=== PATIENT | female | born 1960 | race Caucasian/White ===

== ENCOUNTER 2017-01-22 14:55 | Observation (INO) | payer OTHER ==
[2017-01-22] MEDS ORDERED: ASPIRIN 81 MG CHEWABLE TAB PO ONE ×2 (15:09)
[2017-01-22] MEDS ORDERED: NS 500 ML IV ONE ×2 (15:09)
--- NOTE | 2017-01-22 15:15 | CPEKG ---
Heart Rate: 63 RR Interval: 952 P-R Interval: 160 QRSD Interval: 90 QT Interval: 412 QTC Interval: 422 P [place]: 34 QRS [place]: 70 T Wave [place]: 46 EKG Severity - OTHERWISE NORMAL ECG - EKG Impression: SINUS RHYTHM EKG Impression: S1,S2,S3 PATTERN Electronically Signed By: Radha Johnson 23-Jan-2017 00:06:33
--- NOTE | 2017-01-22 15:15 | CPEKG ---
Heart Rate: 63 RR Interval: 952 P-R Interval: 160 QRSD Interval: 90 QT Interval: 412 QTC Interval: 422 P [place]: 34 QRS [place]: 70 T Wave [place]: 46 EKG Severity - OTHERWISE NORMAL ECG - EKG Impression: SINUS RHYTHM EKG Impression: S1,S2,S3 PATTERN Electronically Signed By: Radha Johnson 23-Jan-2017 00:06:33
[2017-01-22 15:29] LABS: PLATELET COUNT 203 10^3/uL (150-400)
--- NOTE | 2017-01-22 15:33 | EDPHY ---
H & P Time Seen by Provider: 01/22/17 15:09 HPI/ROS: HPI Chest discomfort, shortness of breath. 56-year-old female by private vehicle. This patient complains of on and off chest discomfort described as an aching in the middle of her chest with associated shortness of breath that is worse with taking a deep breath and worse with exertion for the last month but more persistent and worse over the last week. She saw her primary care physician who diagnosed her with pleurisy and place her on NSAIDs. This is Dr. Villela. Her symptoms in persisted and she was seen in urgent care prior to coming to the emergency department. She requested antibiotics thinking that she had a pneumonia but her chest x-ray ordered by her primary care physician was normal. After quick evaluation at the urgent care she was sent directly to the emergency department for evaluation. ROS: Constitutional: No fever, no chills. No weakness. Eyes: No discharge. No changes in vision. ENT: No sore throat. No nasal congestion or rhinorrhea. Respiratory: No cough. As above. Cardiac: As above, no palpitations. Gastrointestinal: No abdominal pain, no vomiting, no diarrhea. Genitourinary: No hematuria. No dysuria or increased frequency with urination. Musculoskeletal: No back pain. No neck pain. No myalgias or arthralgias. Skin: No rashes. Neurological: No headache. No focal weakness or altered sensation. Past medical history: Knee surgery. Breast cancer. Social history: Nonsmoker. No alcohol. Here by herself. Describes herself as very athletic and physically active. Physical Exam: General Appearance: Alert, no distress. This patient is responding to questions appropriately and in full sentences. This patient appears well- hydrated and well-nourished. Eyes: Pupils equal and round no pallor or injection. No lid edema, erythema or injection. Respiratory: There are no retractions, lungs are clear to auscultation with good air movement bilaterally. No tachypnea. No reproducible pain on palpation of the chest wall. Cardiovascular: Regular rate and rhythm. No murmur. Gastrointestinal: Abdomen is soft and nontender, no masses, bowel sounds normal. No focal tenderness at McBurney's point. No Rojo sign. Neurological: Motor sensory function is grossly intact. Cranial nerves are normal. Gait is normal. Skin: Warm and dry, no rashes. Musculoskeletal: Neck is supple and nontender. Extremities are symmetrical. All joints range without pain or impingement. Psychiatric: No agitation. No depression. Database: EKG: EKG time is 3:12 p.m.; EKG shows a narrow complex normal sinus rhythm with a ventricular rate of 63. The DE, QRS, QT intervals are within normal limits. There are no ST-T wave changes indicative of ischemic or injury pattern. No evidence of right heart strain. Interpreted by me. Imaging: Chest x-ray AP portable; the cardiac mediastinal silhouette is unremarkable. No evidence of infiltrate or pneumothorax. No acute cardiopulmonary disease process noted. Interpreted by me. Procedures: Emergency department course: IV placed. She was placed on a hospital monitor. Vital signs reviewed. EKG obtained and reviewed by myself. She was given 324 mg of chewed aspirin. She reports that at rest at this time she is not experiencing any significant short of breath and denies any significant chest discomfort. 4:30 p.m., patient re-evaluated. Resting comfortably at this time. Results of her diagnostic testing in the emergency department discussed with her. Plan for admission and further evaluation discussed. All of her questions were answered. Hospitalist paged. 4:40 p.m., spoke with hospitalist. Patient accepted for admission to observation telemetry. Patient's remaining emergency department course under my care has been uneventful. Patient was admitted in stable and improved condition. Differential Diagnosis: The differential diagnosis on this patient includes but is not limited to pulmonary embolism, acute coronary syndrome, pleurisy, esophageal spasm, pneumonia. This represents a partial list of diagnoses considered. These considerations are based on history, physical exam, past history, reassessment and diagnostic testing. Smoking Status: Never smoked Constitutional: Initial Vital Signs Temperature (C) 37.1 C 01/22/17 14:58 Heart Rate 72 01/22/17 14:58 Respiratory Rate 16 01/22/17 14:58 Blood Pressure 107/70 01/22/17 14:58 O2 Sat (%) 96 01/22/17 14:58 O2 Delivery Mode Room Air Allergies/Adverse Reactions: gluten Allergy (Verified 01/22/17 14:58) Home Medications: Medication Instructions Recorded NK [No Known Home Meds] 01/22/17 Medical Decision Making - Diagnostics Imaging Results: Imaging Impressions Chest X-Ray 01/22/17 15:10 Impression: Negative portable chest. - Data Points Laboratory Results: Laboratory Results 01/22/17 15:20 01/22/17 15:20 01/22/17 01/22/17 01/22/17 15:20 15:20 15:20 WBC 3.72 10^3/uL L 10^3/uL (3.80-9.50) RBC 4.45 10^6/uL 10^6/uL (4.18-5.33) Hgb 13.8 g/dL g/dL (12.6-16.3) Hct 40.7 % % (38.0-47.0) MCV 91.5 fL fL (81.5-99.8) MCH 31.0 pg pg (27.9-34.1) MCHC 33.9 g/dL g/dL (32.4-36.7) RDW 12.8 % % (11.5-15.2) Plt Count 203 10^3/uL 10^3/uL (150-400) MPV 8.7 fL fL (8.7-11.7) Neut % (Auto) 53.8 % % (39.3-74.2) Lymph % (Auto) 34.9 % % (15.0-45.0) [place] % (Auto) 7.3 % % (4.5-13.0) Eos % (Auto) 2.4 % % (0.6-7.6) Baso % (Auto) 1.3 % % (0.3-1.7) Nucleat RBC Rel Count 0.0 % % (0.0-0.2) Absolute Neuts (auto) 2.00 10^3/uL 10^3/uL (1.70-6.50) Absolute Lymphs (auto) 1.30 10^3/uL 10^3/uL (1.00-3.00) Absolute Monos (auto) 0.27 10^3/uL L 10^3/uL (0.30-0.80) Absolute Eos (auto) 0.09 10^3/uL 10^3/uL (0.03-0.40) Absolute Basos (auto) 0.05 10^3/uL 10^3/uL (0.02-0.10) Absolute Nucleated RBC 0.00 10^3/uL 10^3/uL (0-0.01) Immature Gran % 0.3 % % (0.0-1.1) Immature Gran # 0.01 10^3/uL 10^3/uL (0.00-0.10) PT 12.8 SEC SEC (12.0-15.0) INR 0.97 (0.83-1.16) APTT 22.8 SEC L SEC (23.0-38.0) D-Dimer < 0.27 ug/mLFEU ug/mLFEU (0.00-0.50) Sodium 138 mEq/L mEq/L (134-144) Potassium 4.1 mEq/L mEq/L (3.5-5.2) Chloride 103 mEq/L mEq/L (97-110) Carbon Dioxide 25 mEq/l mEq/l (22-31) Anion Gap 10 mEq/L mEq/L (8-16) BUN 16 mg/dL mg/dL (7-23) Creatinine 0.7 mg/dL mg/dL (0.6-1.0) Estimated GFR > 60 Glucose 87 mg/dL mg/dL (70-100) Calcium 9.4 mg/dL mg/dL (8.5-10.4) Creatine Kinase 147 IU/L IU/L (0-156) CK-MB (CK-2) Fraction 2.63 ng/mL ng/mL (0.00-3.19) Troponin I < 0.012 ng/mL ng/mL (0.000-0.034) Medications Given: Discontinued Medications Aspirin (Aspirin) 324 mg PO EDNOW ONE Stop: 01/22/17 15:10 Last Admin: 01/22/17 15:39 Dose: 324 mg Sodium Chloride (Ns) 500 mls @ 1,000 mls/hr IV EDNOW ONE PRN Reason: Protocol Stop: 01/22/17 15:38 Last Admin: 01/22/17 15:38 Dose: 500 mls Departure - Departure Disposition: [facility] Inpatient Acute Clinical Impression: Chest pain, Dyspnea Referrals: KAI VILLELA [Primary Care Provider] - As per Instructions
[2017-01-22 15:38] LABS: INR 0.97 (0.83-1.16); PROTIME(PATIENT) 12.8 SEC (12.0-15.0)
[2017-01-22 15:55] LABS: CREATINE KINASE 147 IU/L (0-156)
[2017-01-22] MEDS ORDERED: ONDANSETRON 4 MG/2 ML VIAL IVP PRN ×2 (18:25)
[2017-01-22] MEDS ORDERED: ONDANSETRON DISINTEGRATING 4 MG TAB PO PRN ×2 (18:25)
[2017-01-22] MEDS ORDERED: ACETAMINOPHEN 325 MG TAB PO PRN ×2 (18:25)
[2017-01-22] MEDS: ALBUTEROL 3 ML DEYVIAL IH SCH ×4 (18:37→22:04)
[2017-01-22] MEDS ORDERED: oxyCODONE IR 5 MG TAB PO PRN ×2 (18:46)
--- NOTE | 2017-01-22 18:54 | PDGENHP ---
History and Physical - Chief Complaint CP - History of Present Illness This is a healthy 56 yo active female who for the past week has been having CP intermittently sometimes with exertion and other times at rest. She feels like she cannot take a deep breath. She was seen by her PCP who started NSAID with no significant improvement. She was seen by urgent care to day and sent to the E.D. She denies cough. She currently does not have any cough. She denies palpitations, neck pain, arm pain, shoulder pain. She has been afebrile. EKG unremarkable Trop unremarkable D-Dimer unremarkable CXR: unremarkable Past medical history: Knee surgery. Breast cancer. Social history: Nonsmoker. No alcohol. Here by herself. Describes herself as very athletic and physically active. FmHx: no early cardiac disease History Information - Allergies/Home Medication List Allergies/Adverse Reactions: gluten Allergy (Verified 01/22/17 14:58) Home Medications: Ascorbic Acid [Vitamin C] 2,000 mg PO DAILY 01/22/17 [Last Taken Unknown] Herbals/Supplements -Info Only 1 ea PO DAILY 01/22/17 [Last Taken Unknown] I have personally reviewed and updated: medical history, social history - Social History Smoking Status: Never smoked Review of Systems Review of Systems: ROS: 10pt was reviewed & negative except for what was stated in HPI & below Physical Exam Physical Exam: Temp Pulse Resp BP Pulse Ox 37.2 C 59 L 18 106/67 98 01/22/17 18:10 01/22/17 18:10 01/22/17 18:10 01/22/17 18:10 01/22/17 17:42 Constitutional: no apparent distress, appears nourished, not in pain Eyes: PERRL, EOMI Ears, Nose, Mouth, Throat: moist mucous membranes, hearing normal Cardiovascular: regular rate and rhythym, no murmur, rub, or gallop, No irregularly irregular, No edema Respiratory: no respiratory distress, no rales or rhonchi, reduced air movement (slight) Gastrointestinal: normoactive bowel sounds Skin: warm Neurologic: AAOx3 Psychiatric: interacting appropriately, not anxious, not encephalopathic Lab Data & Imaging Review 01/22/17 15:20 01/22/17 15:20 WBC 3.72 10^3/uL (3.80-9.50) L 01/22/17 15:20 RBC 4.45 10^6/uL (4.18-5.33) 01/22/17 15:20 Hgb 13.8 g/dL (12.6-16.3) 01/22/17 15:20 Hct 40.7 % (38.0-47.0) 01/22/17 15:20 MCV 91.5 fL (81.5-99.8) 01/22/17 15:20 MCH 31.0 pg (27.9-34.1) 01/22/17 15:20 MCHC 33.9 g/dL (32.4-36.7) 01/22/17 15:20 RDW 12.8 % (11.5-15.2) 01/22/17 15:20 Plt Count 203 10^3/uL (150-400) 01/22/17 15:20 MPV 8.7 fL (8.7-11.7) 01/22/17 15:20 Neut % (Auto) 53.8 % (39.3-74.2) 01/22/17 15:20 Lymph % (Auto) 34.9 % (15.0-45.0) 01/22/17 15:20 [place] % (Auto) 7.3 % (4.5-13.0) 01/22/17 15:20 Eos % (Auto) 2.4 % (0.6-7.6) 01/22/17 15:20 Baso % (Auto) 1.3 % (0.3-1.7) 01/22/17 15:20 Nucleat RBC Rel Count 0.0 % (0.0-0.2) 01/22/17 15:20 Absolute Neuts (auto) 2.00 10^3/uL (1.70-6.50) 01/22/17 15:20 Absolute Lymphs (auto) 1.30 10^3/uL (1.00-3.00) 01/22/17 15:20 Absolute Monos (auto) 0.27 10^3/uL (0.30-0.80) L 01/22/17 15:20 Absolute Eos (auto) 0.09 10^3/uL (0.03-0.40) 01/22/17 15:20 Absolute Basos (auto) 0.05 10^3/uL (0.02-0.10) 01/22/17 15:20 Absolute Nucleated RBC 0.00 10^3/uL (0-0.01) 01/22/17 15:20 Immature Gran % 0.3 % (0.0-1.1) 01/22/17 15:20 Immature Gran # 0.01 10^3/uL (0.00-0.10) 01/22/17 15:20 PT 12.8 SEC (12.0-15.0) 01/22/17 15:20 INR 0.97 (0.83-1.16) 01/22/17 15:20 APTT 22.8 SEC (23.0-38.0) L 01/22/17 15:20 D-Dimer < 0.27 ug/mLFEU (0.00-0.50) 01/22/17 15:20 Sodium 138 mEq/L (134-144) 01/22/17 15:20 Potassium 4.1 mEq/L (3.5-5.2) 01/22/17 15:20 Chloride 103 mEq/L (97-110) 01/22/17 15:20 Carbon Dioxide 25 mEq/l (22-31) 01/22/17 15:20 Anion Gap 10 mEq/L (8-16) 01/22/17 15:20 BUN 16 mg/dL (7-23) 01/22/17 15:20 Creatinine 0.7 mg/dL (0.6-1.0) 01/22/17 15:20 Estimated GFR > 60 01/22/17 15:20 Glucose 87 mg/dL (70-100) 01/22/17 15:20 Calcium 9.4 mg/dL (8.5-10.4) 01/22/17 15:20 Creatine Kinase 147 IU/L (0-156) 01/22/17 15:20 CK-MB (CK-2) Fraction 2.63 ng/mL (0.00-3.19) 01/22/17 15:20 Troponin I < 0.012 ng/mL (0.000-0.034) 01/22/17 15:20 Assessment & Plan Assessment: #Atypical chest pain #?bronchitis plan: admit serial cardiac enzymes tte will hold off on stress test NSAIDS trial of bronchodilator check for cardiac risk factors anticipate discharge tomorrow SCD's Full Code
[2017-01-22] MEDS: IBUPROFEN 600 MG TAB PO SCH ×2 (20:09)
[2017-01-23 05:01] LABS: PLATELET COUNT 199 10^3/uL (150-400)
[2017-01-23] MEDS: ALBUTEROL 3 ML DEYVIAL IH SCH ×2 (06:23)
[2017-01-23] MEDS: IBUPROFEN 600 MG TAB PO SCH ×2 (06:38)
[2017-01-23 07:11] VITALS: RESP 19; TEMP 97.8; O2SAT 92
[2017-01-23 09:52] VITALS: BP 107/66; PULSE 67
--- NOTE | 2017-01-23 10:07 | ECHO ---
[email or web address] [address] [address] Main: [phone] Fax: Transthoracic Echocardiogram Name: VU IYER MR#: [id number] Study Date: 01/23/2017 Study Time: 08:05 AM Date of : 1960 Age: 56 year(s) Height: 162.6 cm (64 in.) Weight: 50.8 kg (112 lb.) BSA: 1.53 m2 Gender: Female Examination: Echo Indication: Chest Pain Image Quality: Adequate Contrast: Requested by: Andrzej Christianson BP: 94 mmHg/58 mmHg Heart Rate: 74 bpm Rhythm: Normal sinus rhythm Indication: Chest Pain Procedure Staff Cdl Flatbed Truck Driver: Renetta Elizabeth Reading Physician: Misael Burch Requesting Provider: Conclusions: Normal global systolic LV function. Normal diastolic LV function. Normal study Measurements: Chambers Valvular Assessment AV/MV Valvular Assessment TV/PV Normal Normal Normal Name Value Range Name Value Range Name Value Range Ao Keshia (MM): 2.4 cm (2.2 cm-3.7 AV Vmax: 1.22 m/s (1 m/s-1.7 PV Vmax: 1.11 m/s (0.6 m/s-0.9 cm) m/s) m/s) IVSd (2D): 0.7 cm (0.6 cm-1.1 AV maxP mmHg ( - ) PV PGmax: 5 mmHg ( - ) cm) LVOT Vmax: 0.82 m/s (0.7 m/s-1.1 LVDd (2D): 4.2 cm (3.9 cm-5.3 m/s) cm) MV E Vmax: 0.43 m/s ( - ) LVDs (2D): 2.7 cm (2.1 cm-4 MV A Vmax: 0.78 m/s ( - ) cm) MV E/A: 0.55 ( - ) LVPWd (2D): 1.0 cm ( - ) LVEF (MOD4): 66 % (>=55 %) RVDd(2D): 3.3 cm (1.9 cm-3.8 cmmm) Continued Measurements: Chambers Valvular Assessment AV/MV Name Value Name Value LADs Lon.6 cm MV DecTime: 278 m/s LA Area: 17.4 cm2 MV E' Septal: 0.06 m/s LA Volume: 35 ml MV E/E' Septal: 7.50 LA Volume Index: 22.9 ml/m2 MV E/E' Lateral: 7.30 RA Area: 16.1 cm2 Patient: VU IYER Study Date: 01/23/2017 Page 1 of 2 08:05 AM Additional Vessels Name Value Ao Ascendin.6 cm Findings: Left Ventricle: Normal size left ventricle. No LV hypertrophy. Normal global systolic LV function. EF is 66 %. No regional wall motion abnormality. Normal diastolic LV function. Right Ventricle: Normal size right ventricle. Normal RV function. Left Atrium: The left atrium is normal in size. Right Atrium: The right atrium is normal in size. Mitral Valve: The mitral valve is normal in appearance and function. There is no mitral valve regurgitation. Aortic Valve: The aortic valve is normal in appearance and function. There is no aortic valve regurgitation. No aortic valve stenosis is present. Tricuspid Valve: The tricuspid valve is normal in appearance and function. There is no tricuspid valve regurgitation. Pulmonary artery pressure is not obtained due to inadequate TR jet. Pulmonic Valve: Pulmonary valve not well visualized. Aorta: The aorta is normal. Normal size aortic root measuring 2.4 cm. Normal size ascending aorta measuring 2.6 cm. IVC: The IVC is normal sized. Pericardium: No pericardial effusion. (No Signature Object) Patient: VU IYER Study Date: 01/23/2017 Page 2 of 2 08:05 AM [id number]
--- NOTE | 2017-01-23 10:07 | ECHO ---
[email or web address] [address] [address] Main: [phone] Fax: Transthoracic Echocardiogram Name: VU IYER MR#: [id number] Study Date: 01/23/2017 Study Time: 08:05 AM Date of : 1960 Age: 56 year(s) Height: 162.6 cm (64 in.) Weight: 50.8 kg (112 lb.) BSA: 1.53 m2 Gender: Female Examination: Echo Indication: Chest Pain Image Quality: Adequate Contrast: Requested by: Andrzej Christianson BP: 94 mmHg/58 mmHg Heart Rate: 74 bpm Rhythm: Normal sinus rhythm Indication: Chest Pain Procedure Staff Grocery Clerk Marking: Renetta Elizabeth Reading Physician: Misael Burch Requesting Provider: Conclusions: Normal global systolic LV function. Normal diastolic LV function. Normal study Measurements: Chambers Valvular Assessment AV/MV Valvular Assessment TV/PV Normal Normal Normal Name Value Range Name Value Range Name Value Range Ao Keshia (MM): 2.4 cm (2.2 cm-3.7 AV Vmax: 1.22 m/s (1 m/s-1.7 PV Vmax: 1.11 m/s (0.6 m/s-0.9 cm) m/s) m/s) IVSd (2D): 0.7 cm (0.6 cm-1.1 AV maxP mmHg ( - ) PV PGmax: 5 mmHg ( - ) cm) LVOT Vmax: 0.82 m/s (0.7 m/s-1.1 LVDd (2D): 4.2 cm (3.9 cm-5.3 m/s) cm) MV E Vmax: 0.43 m/s ( - ) LVDs (2D): 2.7 cm (2.1 cm-4 MV A Vmax: 0.78 m/s ( - ) cm) MV E/A: 0.55 ( - ) LVPWd (2D): 1.0 cm ( - ) LVEF (MOD4): 66 % (>=55 %) RVDd(2D): 3.3 cm (1.9 cm-3.8 cmmm) Continued Measurements: Chambers Valvular Assessment AV/MV Name Value Name Value LADs Lon.6 cm MV DecTime: 278 m/s LA Area: 17.4 cm2 MV E' Septal: 0.06 m/s LA Volume: 35 ml MV E/E' Septal: 7.50 LA Volume Index: 22.9 ml/m2 MV E/E' Lateral: 7.30 RA Area: 16.1 cm2 Patient: VU IYER Study Date: 01/23/2017 Page 1 of 2 08:05 AM Additional Vessels Name Value Ao Ascendin.6 cm Findings: Left Ventricle: Normal size left ventricle. No LV hypertrophy. Normal global systolic LV function. EF is 66 %. No regional wall motion abnormality. Normal diastolic LV function. Right Ventricle: Normal size right ventricle. Normal RV function. Left Atrium: The left atrium is normal in size. Right Atrium: The right atrium is normal in size. Mitral Valve: The mitral valve is normal in appearance and function. There is no mitral valve regurgitation. Aortic Valve: The aortic valve is normal in appearance and function. There is no aortic valve regurgitation. No aortic valve stenosis is present. Tricuspid Valve: The tricuspid valve is normal in appearance and function. There is no tricuspid valve regurgitation. Pulmonary artery pressure is not obtained due to inadequate TR jet. Pulmonic Valve: Pulmonary valve not well visualized. Aorta: The aorta is normal. Normal size aortic root measuring 2.4 cm. Normal size ascending aorta measuring 2.6 cm. IVC: The IVC is normal sized. Pericardium: No pericardial effusion. (No Signature Object) Patient: VU IYER Study Date: 01/23/2017 Page 2 of 2 08:05 AM [id number]
--- NOTE | 2017-01-23 10:07 | ECHO ---
[email or web address] [address] [address] Main: [phone] Fax: Transthoracic Echocardiogram Name: VU IYER MR#: [id number] Study Date: 01/23/2017 Study Time: 08:05 AM Date of : 1960 Age: 56 year(s) Height: 162.6 cm (64 in.) Weight: 50.8 kg (112 lb.) BSA: 1.53 m2 Gender: Female Examination: Echo Indication: Chest Pain Image Quality: Adequate Contrast: Requested by: Andrzej Christianson BP: 94 mmHg/58 mmHg Heart Rate: 74 bpm Rhythm: Normal sinus rhythm Indication: Chest Pain Procedure Staff Director Of Early Childhood: Renetta Elizabeth Reading Physician: Misael Burch Requesting Provider: Conclusions: Normal global systolic LV function. Normal diastolic LV function. Normal study Measurements: Chambers Valvular Assessment AV/MV Valvular Assessment TV/PV Normal Normal Normal Name Value Range Name Value Range Name Value Range Ao Keshia (MM): 2.4 cm (2.2 cm-3.7 AV Vmax: 1.22 m/s (1 m/s-1.7 PV Vmax: 1.11 m/s (0.6 m/s-0.9 cm) m/s) m/s) IVSd (2D): 0.7 cm (0.6 cm-1.1 AV maxP mmHg ( - ) PV PGmax: 5 mmHg ( - ) cm) LVOT Vmax: 0.82 m/s (0.7 m/s-1.1 LVDd (2D): 4.2 cm (3.9 cm-5.3 m/s) cm) MV E Vmax: 0.43 m/s ( - ) LVDs (2D): 2.7 cm (2.1 cm-4 MV A Vmax: 0.78 m/s ( - ) cm) MV E/A: 0.55 ( - ) LVPWd (2D): 1.0 cm ( - ) LVEF (MOD4): 66 % (>=55 %) RVDd(2D): 3.3 cm (1.9 cm-3.8 cmmm) Continued Measurements: Chambers Valvular Assessment AV/MV Name Value Name Value LADs Lon.6 cm MV DecTime: 278 m/s LA Area: 17.4 cm2 MV E' Septal: 0.06 m/s LA Volume: 35 ml MV E/E' Septal: 7.50 LA Volume Index: 22.9 ml/m2 MV E/E' Lateral: 7.30 RA Area: 16.1 cm2 Patient: VU IYER Study Date: 01/23/2017 Page 1 of 2 08:05 AM Additional Vessels Name Value Ao Ascendin.6 cm Findings: Left Ventricle: Normal size left ventricle. No LV hypertrophy. Normal global systolic LV function. EF is 66 %. No regional wall motion abnormality. Normal diastolic LV function. Right Ventricle: Normal size right ventricle. Normal RV function. Left Atrium: The left atrium is normal in size. Right Atrium: The right atrium is normal in size. Mitral Valve: The mitral valve is normal in appearance and function. There is no mitral valve regurgitation. Aortic Valve: The aortic valve is normal in appearance and function. There is no aortic valve regurgitation. No aortic valve stenosis is present. Tricuspid Valve: The tricuspid valve is normal in appearance and function. There is no tricuspid valve regurgitation. Pulmonary artery pressure is not obtained due to inadequate TR jet. Pulmonic Valve: Pulmonary valve not well visualized. Aorta: The aorta is normal. Normal size aortic root measuring 2.4 cm. Normal size ascending aorta measuring 2.6 cm. IVC: The IVC is normal sized. Pericardium: No pericardial effusion. (No Signature Object) Patient: VU IYER Study Date: 01/23/2017 Page 2 of 2 08:05 AM [id number]
--- NOTE | 2017-01-23 12:27 | GDS ---
[f rep st] DISCHARGE SUMMARY DIAGNOSIS: 1. Chest pain, negative troponins and normal EKG this admission. 2. Dyspnea on exertion, response to albuterol. PROCEDURES DONE: D-dimer test negative for PE. Echocardiogram, normal LV function at 66%, normal ri ght ventricle and normal right ventricular function, valve appeared normal with no wall motion abnorm ality. HOSPITAL COURSE: The patient is a 56-year-old healthy woman who comes in with dyspnea on exertion fo r 2-3 weeks, associated with a dry cough, as well as some chest pressure. She went to the emergency department and had a D-dimer which was negative. Troponins were cycled, which were negative. An EKG was within normal limits. She did well overnight, and noted that after a nebulizer treatment she fe lt much better, with better air movement. At the time of discharge, she is feeling improved with no chest pain. I suspect her symptoms may be from a viral illness, as she did have some leukopenia with lymphocytosis noted, and a viral panel was drawn and is pending at the time of dictation. She may h ave some secondary asthma symptoms, but a cardiac cause seems unlikely. However, I will have her set up for an outpatient stress test next week. CONDITION ON DISCHARGE: Good. Vital signs are stable. She is alert and oriented. Heart is regular . Lungs are clear. DISCHARGE MEDICATIONS: She will be prescribed ProAir MDI to use before exercise, to see if that impr oves her exercise tolerance. FOLLOWUP INSTRUCTION: She is going to follow up with [facility] this week to get an exercise stre ss test. She should also follow up with Dr. Villela to proceed with some pulmonary function tests for d iagnosis of possible asthma, as well as follow up on her respiratory panel to see if she has a viral illness contributing to her symptoms. /[id number]/MODL
--- NOTE | 2017-01-23 13:15 | CPEKG ---
Heart Rate: 55 RR Interval: 1091 P-R Interval: 156 QRSD Interval: 86 QT Interval: 432 QTC Interval: 414 P [place]: 38 QRS [place]: 98 T Wave [place]: 42 EKG Severity - ABNORMAL ECG - EKG Impression: SINUS RHYTHM EKG Impression: BORDERLINE RIGHT AXIS DEVIATION EKG Impression: CONSIDER LEFT VENTRICULAR HYPERTROPHY Electronically Signed By: Femi Betts 24-Jan-2017 09:47:11
--- NOTE | 2017-01-24 16:32 | ASDISCHSUM ---
Discharge Information Plan Status:Home with No Needs Medically Cleared to Leave:01/24/2017 Discharge Date:01/23/2017 01:15 PM CM D/C Disposition:Home, Routine, Self-Care ADT D/C Disposition:Home, Routine, Self-Care Projected Discharge Date:01/23/2017 01:00 PM Transportation at D/C:Family Discharge Delay Reason: Follow-Up Date:01/23/2017 01:00 PM Discharge Slot: Final Diagnosis:CP, Dyspnea Placement Information Patient Contact Information Contact Name:ALONSO Relationship: Address:[address] [place] [address] City:[place] Alternate Phone: [facility]/Zip Code:[place] [address] Email: Financial Information Financial Class:HMO and PPO Plans Primary Plan Desc:[employer] Primary Plan Number:[id number] Secondary Plan Desc: Secondary Plan Number: Assessment Information LACE LACE Length of stay for Answers: Less than 1 day current admission Acuity / Level of Care Answers: Was the patient admitted to hospital via the emergency department? Yes: Emergency dept visits in Answers: 1 last 6 months Score: 4 Date Signed: 01/22/2017 04:16 PM Electronically Signed By:Brandan Houston LCSW Intervention Information Intervention Type:*Incorrect Registration Date of Service:01/22/2017 06:26 PM Patient Type:Observation Staff Member:UBALDO Kelly Shelly Hours:0.25 Discipline: Severity:1 (0-1 Hours) Comment:Registered inpatient, admit order writ ten observation status.
--- NOTE | 2017-01-24 16:32 | ASDISCHSUM ---
Discharge Information Plan Status:Home with No Needs Medically Cleared to Leave:01/24/2017 Discharge Date:01/23/2017 01:15 PM CM D/C Disposition:Home, Routine, Self-Care ADT D/C Disposition:Home, Routine, Self-Care Projected Discharge Date:01/23/2017 01:00 PM Transportation at D/C:Family Discharge Delay Reason: Follow-Up Date:01/23/2017 01:00 PM Discharge Slot: Final Diagnosis:CP, Dyspnea Placement Information Patient Contact Information Contact Name:ALONSO Relationship: Address:[address] [place] [address] City:[place] Alternate Phone: [facility]/Zip Code:[place] [address] Email: Financial Information Financial Class:HMO and PPO Plans Primary Plan Desc:[employer] Primary Plan Number:[id number] Secondary Plan Desc: Secondary Plan Number: Assessment Information LACE LACE Length of stay for Answers: Less than 1 day current admission Acuity / Level of Care Answers: Was the patient admitted to hospital via the emergency department? Yes: Emergency dept visits in Answers: 1 last 6 months Score: 4 Date Signed: 01/22/2017 04:16 PM Electronically Signed By:Brandan Houston LCSW Intervention Information Intervention Type:*Incorrect Registration Date of Service:01/22/2017 06:26 PM Patient Type:Observation Staff Member:UBALDO Kelly Shelly Hours:0.25 Discipline: Severity:1 (0-1 Hours) Comment:Registered inpatient, admit order writ ten observation status.
--- NOTE | 2017-01-24 16:32 | ASDISCHSUM ---
Discharge Information Plan Status:Home with No Needs Medically Cleared to Leave:01/24/2017 Discharge Date:01/23/2017 01:15 PM CM D/C Disposition:Home, Routine, Self-Care ADT D/C Disposition:Home, Routine, Self-Care Projected Discharge Date:01/23/2017 01:00 PM Transportation at D/C:Family Discharge Delay Reason: Follow-Up Date:01/23/2017 01:00 PM Discharge Slot: Final Diagnosis:CP, Dyspnea Placement Information Patient Contact Information Contact Name:ALONSO Relationship: Address:[address] [place] [address] City:[place] Alternate Phone: [facility]/Zip Code:[place] [address] Email: Financial Information Financial Class:HMO and PPO Plans Primary Plan Desc:[employer] Primary Plan Number:[id number] Secondary Plan Desc: Secondary Plan Number: Assessment Information LACE LACE Length of stay for Answers: Less than 1 day current admission Acuity / Level of Care Answers: Was the patient admitted to hospital via the emergency department? Yes: Emergency dept visits in Answers: 1 last 6 months Score: 4 Date Signed: 01/22/2017 04:16 PM Electronically Signed By:Brandan Houston LCSW Intervention Information Intervention Type:*Incorrect Registration Date of Service:01/22/2017 06:26 PM Patient Type:Observation Staff Member:UBALDO Kelly Shelly Hours:0.25 Discipline: Severity:1 (0-1 Hours) Comment:Registered inpatient, admit order writ ten observation status.
== END 2017-01-23 13:15 | disposition home or self-care (01) ==
LOC: INTOOBSV 16:45 → F2W 17:47
PROVIDERS: ADMIT Family Medicine; ATTEND Internal Medicine
DX: R07.89 Other chest pain (principal); R06.09 Other forms of dyspnea; Z85.3 Personal history of malignant neoplasm of breast
CPT/HCPCS: 71010; 93005; 93306; 96360; 99285; G0378

== ENCOUNTER → 2017-02-24 | Outpatient (CLI) | payer OTHER | LOC: FIMAGING 15:35 | PROVIDERS: ATTEND Internal Medicine Hematology & Oncology | DX: Z12.31 Encounter for screening mammogram for malignant neoplasm of breast (principal) | CPT/HCPCS: G0202 ==

== ENCOUNTER → 2018-04-06 | Outpatient (CLI) | payer OTHER | LOC: FIMAGING 16:07 | PROVIDERS: ATTEND Internal Medicine Hematology & Oncology | DX: Z12.31 Encounter for screening mammogram for malignant neoplasm of breast (principal) ==

== ENCOUNTER → 2018-04-20 | Outpatient (CLI) | payer OTHER | LOC: BMCLAB 16:12 | PROVIDERS: ATTEND Internal Medicine | DX: S22.050A Wedge compression fracture of T5-T6 vertebra, initial encounter for closed fracture (principal); S22.060A Wedge compression fracture of T7-T8 vertebra, initial encounter for closed fracture; S22.070A Wedge compression fracture of T9-T10 vertebra, initial encounter for closed fracture; R10.9 Unspecified abdominal pain ==

== ENCOUNTER → 2018-04-21 | Outpatient (CLI) | payer OTHER | LOC: CIMAGING 07:28 ==